=== PATIENT | male | born 1955 | race Two or more races ===

== ENCOUNTER 2019-07-24 11:45 | Emergency (ER) | payer OTHER ==
[~2019-07-24] VITALS: Ht 190.5 cm; Wt 73.0 kg
[2019-07-24 11:49] VITALS: Ht 190.5 cm; Wt 73.0 kg
[2019-07-24 12:18] LABS: BASOPHIL % 0.4 % (0-2); PLATELET COUNT 274 x10^3mcL (130-400); RED CELL DISTRIBUTION WIDTH 14.1 % (11.5-14.5)
[2019-07-24 12:29] LABS: CALCIUM 9.3 mg/dL (8.5-10.1); CARBON DIOXIDE 29.8 mmol/L (21-32); CHLORIDE SERUM 102 mmol/L (98-107); CREATININE SERUM 0.8 mg/dL (0.7-1.3); GFR1 > 60 mL/min; GLUCOSE SERUM 94 mg/dL (74-106); POTASSIUM SERUM 4.3 mmol/L (3.5-5.1); SODIUM SERUM 137 mmol/L (136-145)
[2019-07-24 12:33] LABS: ALBUMIN 3.5 g/dL (3.4-5.0); ALKALINE PHOSPHATASE 63 U/L (46-116); AST/SGOT 11 U/L (15-37); BILIRUBIN TOTAL 0.5 mg/dL (0.20-1.00); LIPASE 438 IU/L (73-393); MAGNESIUM 1.9 mg/dL (1.8-2.4); TOTAL PROTEIN, SERUM 7.5 g/dL (6.4-8.2)
[2019-07-24 12:35] LABS: T4(THYROXINE) 4.6 ug/dL (4.7-13.3)
[2019-07-24 13:14] LABS: ALT/SGPT 20 U/L (16-63); CHOLESTEROL 183 mg/dL (<200); HDL CHOLESTEROL 40 mg/dL (40-60)
[2019-07-24 13:16] LABS: UA SPECIFIC GRAVITY 1.015 (1.005-1.035); microscopic required? YES; urine erythrocyte TRACE (NEGATIVE)
[2019-07-24 13:59] LABS: AMPHETAMINE QUAL UR NONE DETECTED (See below)
[2019-07-24 15:26] VITALS: BP 136/77
== END 2019-07-24 15:26 | disposition left against medical advice (07) ==
LOC: ED 11:45 → DU 14:44 → ED 14:44
PROVIDERS: Emergency Medicine
DX: R55 Syncope and collapse (principal); R74.8 Abnormal levels of other serum enzymes; Z87.442 Personal history of urinary calculi
CPT/HCPCS: 82962; G0480; J7030